=== PATIENT | male | born 1965 | race Caucasian/White ===

== ENCOUNTER 2023-03-02 09:14 | Outpatient (CLI) | payer BC, SELFPAY ==
--- NOTE | 2023-03-11 18:14 | WPDHOMESLEEP ---
Sleep Study - Home Unattended Date of Study: 03/02/23 Ordering Provider: Deirdre Gomes NP Interpreting Provider: Silvina Escalona MD Home Sleep Study Type: Watch PAT Height: 1.85 m Weight: 80.286 kg Body Mass Index: 23.3 Neck Circumference (inches): 15 [place]: 11 Reason for Sleep Study Insomnia Sleep History Benjamin Gates is a 57-year-old man with difficulty breathing while he is asleep. He suspects that he has obstructive sleep apnea. His medical comorbidities include hypertension and anxiety. He never awakens from sleep feeling short of breath. He never wakes at night with heartburn, belching or coughing.??He frequently snores, but he never snores loudly enough that others complain. He never has trouble sleeping when he has a cold. He never wakes up gasping for breath during the night. He constantly has breathing problems at night, either observed by others or he is aware of these episodes personally. He occasionally sweats excessively at night. He never notices his heart pounding or beating irregularly during the night. He occasionally falls asleep during the day. He never falls asleep involuntarily, however occasionally falls asleep while driving. He frequently has daytime difficulties due to his excessive sleepiness, he is an insurance verifier. He never experiences loss of muscle tone with strong emotion. He never feels paralyzed on waking or falling asleep. He occasionally experiences vivid dreams upon waking or falling asleep. He occasionally feels afraid of going to sleep. He never has nightmares. He occasionally recalls his dreams. He never has thoughts racing through his mind. He occasional feels sad or depressed. He occasionally feels anxiety. He never notices parts of his body jerk. He never kicks during the night. He never feels crawling or aching feelings in his legs. He never feels leg pain at night. He never grinds his teeth, and never has morning jaw pain. He never feels bothered by pain during the day, never is awakened by pain during the night. He occasionally wakes up feeling stiff in the morning, never wakes feeling sore or achy in the morning. On occasion, he awakens with pain in his neck, spine, or joints. He has daytime fatigue Normal bedtime is 10:00 p.m., usually falling asleep within 30 minutes but sometimes it takes an hour. He typically gets 5-6 hours of sleep per night. He wakes up between 2 and 3 times at night for various reasons, stays awake for about 30 minutes. While awake he uses his phone, television, he listens to an audio book and he tries relaxation techniques. His normal wake time is 5:00 a.m.. On weekends, his bedtime is 11:00 p.m. and his wake time is 5:00 a.m.. He does not generally take naps. A short nap lasting 10 or 15 minutes is not refreshing. He is drowsy for 30 minutes after waking. He feels better in the morning compared to other times of the day. Habits:??Tobacco: never smoker Caffeine: Two cups of coffee in the morning. Alcohol: none Recreational substances: none PMFSH Past Medical History Medical History Anxiety Congenital fusion of spine (vertebra) Depression Eczema Encounter for screening for malignant neoplasm of prostate Encounter to establish care Hypersomnia Hypertension Screening for colon cancer Snoring Family History Family History Father Cancer Mother Depression Sibling Depression Social History Social History Smoking status: Never smoker Alcohol intake: never Substance use: never Substance use type: does not use Medications Home Medications Medication Instructions Recorded Confirmed Type hydroxyzine HCl 25 mg tablet 25 mg PO TID PRN anxiety #90 tabs 01/26/23 Rx metoprolol succinate 25 mg 12.5 mg PO DAILY #30 tabs 01/26/23 Rx tablet,extended release 24 h
[2023-03-13 16:17] VITALS: BMI 23.3
== END 2023-03-07 13:10 | disposition home or self-care (01) ==
LOC: ANHCSM 09:14
PROVIDERS: PCP Family Medicine; Visit Provider Nurse Practitioner Family
DX: G47.00 Insomnia, unspecified (principal); G47.33 Obstructive sleep apnea (adult) (pediatric)
CPT/HCPCS: 95800